=== PATIENT | female | born 1995 | race Caucasian/White ===

== ENCOUNTER 2016-04-22 19:30 | Emergency (ER) | payer SELFPAY ==
[2016-04-22 19:46] VITALS: TEMP 98.1; O2SAT 98
[2016-04-22] MEDS ORDERED: ONDANSETRON DISINTEGRATING 4 MG TAB PO ONE (19:47)
[2016-04-22] MEDS ORDERED: ONDANSETRON 4 MG/2 ML VIAL ONE (21:27)
[2016-04-22] MEDS ORDERED: NS 1,000 ML IV ONE ×2 (21:31→22:11)
[2016-04-22] MEDS ORDERED: ONDANSETRON 4 MG/2 ML VIAL IVP ONE (21:31)
--- NOTE | 2016-04-22 22:07 | EDPHY ---
H & P Stated Complaint: nausea vomiting x 2 day Time Seen by Provider: 04/22/16 21:09 HPI/ROS: CHIEF COMPLAINT: nausea, vomiting HISTORY OF PRESENT ILLNESS: 21-year-old female presents emergency department complaining of nausea and vomiting x2 days. Patient reports to people at her work have similar symptoms. She denies abdominal pain, no diarrhea. She denies urinary symptoms. No vaginal discharge. She is sexually active, has an IUD and uses condoms. She denies back pain, no fevers or chills. REVIEW OF SYSTEMS: A comprehensive 10 point review of systems is otherwise negative aside from elements mentioned in the history of present illness. Source: Patient Exam Limitations: No limitations - Personal History LMP (Females 10-55): 1-7 Days Ago Current Tetanus/Diphtheria Vaccine: Yes Current Tetanus Diphtheria and Acellular Pertussis (TDAP): Yes - Medical/Surgical History Hx Asthma: No Hx Chronic Respiratory Disease: No Hx Diabetes: No Hx Cardiac Disease: No Hx Renal Disease: No Hx Cirrhosis: No Hx Alcoholism: No Hx HIV/AIDS: No Hx Splenectomy or Spleen Trauma: No Other PMH: None - Social History Smoking Status: Never smoked - Physical Exam Exam: Physical Exam Gen: Alert and Oriented, NAD HEENT: PERRL, moist mucous membranes NECK: no meningismus CV: regular rate and regular rhythm PULM: CTAB, no wheezes ABDOMEN: soft, non tender to palpation, BS present BACK: No CVA tenderness NEURO: Neurologically grossly intact EXTREMITIES: normal appearing SKIN: no rash or break in skin on exposed skin PSYCH: answers questions appropriately. Constitutional: Initial Vital Signs Temperature (C) 36.7 C 04/22/16 19:43 Heart Rate 76 04/22/16 19:43 Respiratory Rate 18 04/22/16 19:43 Blood Pressure 118/77 04/22/16 19:43 O2 Sat (%) 98 04/22/16 19:43 O2 Delivery Mode Room Air Allergies/Adverse Reactions: No Known Allergies Allergy (Verified 11/27/15 23:28) Home Medications: Medication Instructions Recorded Iud 04/22/16 Ondansetron Odt [Zofran Odt] 4 mg PO Q6-8PRN PRN #8 tab 04/22/16 Medical Decision Making ED Course/Re-evaluation: IV established, patient is given 4 mg of Zofran and 1 L of normal saline. Patient has no abdominal pain on exam, she has normal vital signs. I think the patient has a gastroenteritis. Patient was given a 2nd L of normal saline, she is feeling better. Urinalysis shows no signs of infection, urine negative. Patient will be discharged home with a prescription for Zofran. She is given strict return precautions for any worsening symptoms, abdominal pain. - Data Points Laboratory Results: 04/22/16 04/22/16 22:39 22:39 Urine Color YELLOW Urine Appearance MODERATELY TURBID Urine pH 6.0 (5.0-7.5) Ur Specific [place] 1.023 (1.002-1.030) Urine Protein NEGATIVE (NEGATIVE) Urine Ketones 1+ H (NEGATIVE) Urine Blood NEGATIVE (NEGATIVE) Urine Nitrate NEGATIVE (NEGATIVE) Urine Bilirubin NEGATIVE (NEGATIVE) Urine Urobilinogen 2.0 EU H EU (0.2-1.0) Ur Leukocyte Esterase NEGATIVE (NEGATIVE) Ur Culture Indicated? NOT INDICATED (NI) Urine Glucose NEGATIVE (NEGATIVE) Urine Test NEGATIVE Medications Given: Discontinued Medications Acetaminophen (Tylenol) 650 mg PO EDNOW ONE Stop: 04/22/16 22:44 Last Admin: 04/22/16 23:06 Dose: 650 mg Sodium Chloride (Ns) 1,000 mls @ 0 mls/hr IV ONCE ONE PRN Reason: Wide Open Stop: 04/22/16 21:32 Last Admin: 04/22/16 21:31 Dose: 1,000 mls Sodium Chloride (Ns) 1,000 mls @ 0 mls/hr IV ONCE ONE PRN Reason: Wide Open Stop: 04/22/16 22:12 Last Admin: 04/22/16 22:12 Dose: 1,000 mls Ondansetron HCl (Zofran Odt) 4 mg PO EDNOW ONE Stop: 04/22/16 19:48 Last Admin: 04/22/16 20:05 Dose: 4 mg Ondansetron HCl (Zofran) 4 mg IVP EDNOW ONE Stop: 04/22/16 21:32 Last Admin: 04/22/16 21:32 Dose: 4 mg Departure - Departure Disposition: Home, Routine, Self-Care Clinical Impression: Nausea and vomiting Qualifiers: Vomiting type: unspecified Vomiting Intractability: non-intractable Qualified Code(s): R11.2 - Nausea with vomiting, unspecified Condition: Good Instructions: Acute Nausea and Vomiting (ED), Ondansetron (By mouth) Additional Instructions: Take 4 mg of Zofran every 6-8 hours as needed for nausea, clear liquids for the next 24 hours, advance diet slowly as tolerated. Return to the emergency department for any abdominal pain, worsening symptoms. Referrals: Anali Glez MD [Primary Care Provider] - As per Instructions Prescriptions: Ondansetron Odt [Zofran Odt] 4 mg PO Q6-8PRN PRN #8 tab PRN Reason: Nausea/Vomiting, Can'T Take Po
[2016-04-22] MEDS ORDERED: ACETAMINOPHEN 325 MG TAB PO ONE (22:43)
[2016-04-22 22:55] LABS: COLOR YELLOW; LEUKOCYTE ESTERASE,URINE NEGATIVE (NEGATIVE); NITRITE,URINE NEGATIVE (NEGATIVE)
[2016-04-22] MEDS ORDERED: ONDANSETRON 4MG PREPACK#2 BTL TAKEHOME ONE (23:27)
[2016-04-22 23:56] VITALS: BP 107/69; PULSE 77; RESP 16
== END 2016-04-22 23:55 | disposition home or self-care (01) ==
DX: R11.2 Nausea with vomiting, unspecified (principal)
CPT/HCPCS: 96374; J2405